=== PATIENT | female | born 1990 | race Caucasian/White ===

== ENCOUNTER 2017-06-06 17:11 | Emergency (ER) | payer BC ==
[~2017-06-06] VITALS: Ht 157.5 cm; Wt 89.8 kg
[~2017-06-06 17:11] MED LIST: ONDA4TAB10 PO
[2017-06-06] MEDS ORDERED: IV NORMAL SALINE 1,000ML 1,000 ML IV SCH (17:45)
[2017-06-06] MEDS ORDERED: KETOROLAC 30 MG/ML VIAL. IV ONE (17:45)
[2017-06-06 18:00] LABS: BASO % 1 % (0-3); EOS % 0 % (0-3); HEMATOCRIT 39.9 % (36.0-47.0); LYMPH # 0.9 x10^3/uL (1.0-4.8); LYMPH % 22 % (24-48); MEAN CORPUSCULAR HEMOGLOBIN 29 pg (25-35); MEAN CORPUSCULAR HGB CONC 35 g/dL (31-37); MEAN CORPUSCULAR VOLUME 82 fL (79-100); MONO # 0.6 x10^3/uL (0.0-1.1); MONO % 15 % (0-9); NEUT # 2.5 x10^3uL (1.8-7.7); NEUT % 63 % (31-73); PLATELET COUNT 208 x10^3/uL (140-400); RED BLOOD COUNT 4.88 x10^6/uL (3.50-5.40); RED CELL DISTRIBUTION WIDTH 14.2 % (11.5-14.5)
--- NOTE | 2017-06-06 18:03 | PHYS DOC ---
Past History Past Medical History: IBS, Migraines Past Surgical History: No Surgical History Alcohol Use: Occasionally Drug Use: None Adult General Chief Complaint Chief Complaint: NAUSEA/VOMITING/DIARRHEA HPI HPI Patient is a 27-year-old female brought to the ED by her mom with a complaint of vomiting and diarrhea, not feeling well. Patient began to have vomiting 4 days ago on Thursday. Between Thursday and she thinks she vomited 18 times. She then developed diarrhea and had diarrhea several times, the last time was last evening. She continues to just feel not well. She has a cough that is productive and sometimes has some streaks of blood. She had abdominal discomfort but it's not as bad as it was. She has been feverish. Patient was seen in her doctor's office yesterday and was given a shot of antibiotic, not sure what it was. It sounds like they thought she might have had a UTI. Patient denies possibility of . She uses NuvaRing. Patient has a history of asthma, she does feel a little wheezy in the upper lungs. Review of Systems Review of Systems Constitutional: She has felt feverish and had chills HENT: Positive nasal congestion Respiratory: Positive cough, productive at times GI: As in history of present illness : Denies dysuria or hematuria [] Musculoskeletal: She has had generalized musculoskeletal aches Integument: Denies rash or skin lesions [] Neurologic: Denies headache, focal weakness or sensory changes [] Current Medications Current Medications Current Medications Medications (Trade) Dose Ordered Sig/Art Start Time Stop Time Status Last Admin Dose Admin Ketorolac Tromethamine (Toradol) 30 mg 1X ONCE 06/06/17 17:45 06/06/17 17:46 DC 06/06/17 17:51 30 MG Sodium Chloride 1,000 ml @ 1,000 mls/hr Q1H 06/06/17 17:45 06/06/17 18:44 06/06/17 17:47 1,000 MLS/HR Allergies Allergies Allergies Coded Allergies Type Severity Reaction Last Updated Verified No Known Drug Allergies 10/28/15 No Physical Exam Physical Exam Constitutional: Obese female, alert, mentating normally, warm and dry. Pulse ox on room air 97-98%. Heart rate at rest on the cart is in the 130s. HENT: Normocephalic, atraumatic, bilateral external ears normal, nose normal. [ ] Eyes: conjunctiva normal, no discharge. [] Neck: Normal range of motion, no stridor. [] Cardiovascular:Heart rate regular rhythm, no murmur , tachycardia Lungs & Thorax: Bilateral breath sounds clear to auscultation with good air movement throughout and no wheezes heard Abdomen: Bowel sounds normal, soft, nondistended, no tenderness, no masses, no pulsatile masses. [] Skin: Warm, dry, no erythema, no rash. [] Extremities: No tenderness, no cyanosis, no clubbing, ROM intact, no edema. [] Neurologic: Alert and oriented X 3, normal motor function, no focal deficits noted. [] EKG EKG [] Radiology/Procedures Radiology/Procedures [] Course & Med Decision Making Course & Med Decision Making Pertinent Labs and Imaging studies reviewed. (See chart for details) 27-year-old female in good general health presents with 4 days of what sounds like probably a viral gastroenteritis, started with many episodes of vomiting and then had several episodes of diarrhea. It sounds like that has passed. She now has cough, general fatigue. She is tachycardic, I suspect she is dehydrated. I advised the patient we will check some labs and give her some IV fluids, she is agreeable to that. Patient's heart rate improved after 1 L, we will give her a second liter. Labs consistent with viral syndrome. She has Zofran at home. She is stable for discharge. See instructions for plan. [] Dragon Disclaimer Dragon Disclaimer This electronic medical record was generated, in whole or in part, using a voice recognition dictation system. Departure Departure: Impression: Primary Impression: Nausea and vomiting Additional Impression: Dehydration Disposition: 01 HOME, SELF-CARE Condition: IMPROVED Referrals: RADHA SAUCEDO (PCP) Patient Instructions: Nausea and Vomiting, [id number] Additional Instructions: Small amounts of clear liquids frequently until your stomach settles. Recheck with your doctor if not better in 2-3 days. Return sooner if worse. Problem Qualifiers BENJIE SCHNEIDER MD Jun 06, 2017 18:03
[2017-06-06 18:08] LABS: ALBUMIN 2.7 g/dL (3.4-5.0); ALBUMIN/GLOBULIN RATIO 0.8 (1.0-1.7); CALCIUM 8.1 mg/dL (8.5-10.1); GFR 66.5; POTASSIUM 3.1 mmol/L (3.5-5.1); TOTAL BILIRUBIN 0.1 mg/dL (0.2-1.0); TOTAL PROTEIN 6.2 g/dL (6.4-8.2)
[2017-06-06] MEDS ORDERED: IV NORMAL SALINE 1,000ML 1,000 ML IV ONE (18:45)
[2017-06-06 18:49] VITALS: BP 136/72
[2017-06-06] MEDS ORDERED: ONDANSETRON PF 4 MG/2 ML VIAL. IV ONE (19:15)
== END 2017-06-06 19:55 | disposition home or self-care (01) ==
LOC: ER 17:11
DX: E86.0 Dehydration (principal); R11.2 Nausea with vomiting, unspecified; K58.0 Irritable bowel syndrome with diarrhea; J45.909 Unspecified asthma, uncomplicated; G43.909 Migraine, unspecified, not intractable, without status migrainosus
CPT/HCPCS: 36415; 80053; 85025; 96361; 96374; 96375; 99284; J1885; J2405; J7030

== ENCOUNTER 2017-12-09 11:22 | Emergency (ER) | payer BC ==
[~2017-12-09] VITALS: Ht 154.9 cm; Wt 88.5 kg
[2017-12-09] MEDS ORDERED: IV NORMAL SALINE 1,000ML 1,000 ML IV ONE (11:45)
[2017-12-09] MEDS ORDERED: IOHEXOL 300 MG/ML 75 ML VIAL. IV ONE (12:15)
[2017-12-09 12:17] LABS: MONONUCLEOSIS PATIENT NEGATIVE (NEGATIVE)
[2017-12-09 12:18] LABS: BASO % 0 % (0-3); EOS # 0.1 x10^3/uL (0.0-0.7); EOS % 1 % (0-3); HEMATOCRIT 40.8 % (36.0-47.0); HEMOGLOBIN 13.8 g/dL (12.0-15.5); LYMPH % 24 % (24-48); MEAN CORPUSCULAR HEMOGLOBIN 28 pg (25-35); MEAN CORPUSCULAR HGB CONC 34 g/dL (31-37); MEAN CORPUSCULAR VOLUME 82 fL (79-100); MONO # 0.7 x10^3/uL (0.0-1.1); MONO % 8 % (0-9); NEUT # 5.6 x10^3uL (1.8-7.7); NEUT % 66 % (31-73); PLATELET COUNT 191 x10^3/uL (140-400); RED BLOOD COUNT 4.96 x10^6/uL (3.50-5.40); RED CELL DISTRIBUTION WIDTH 14.5 % (11.5-14.5); WHITE BLOOD COUNT 8.5 x10^3/uL (4.0-11.0)
[2017-12-09 12:27] LABS: ALBUMIN 2.9 g/dL (3.4-5.0); ALBUMIN/GLOBULIN RATIO 0.7 (1.0-1.7); CALCIUM 8.5 mg/dL (8.5-10.1); CREATININE 0.9 mg/dL (0.6-1.0); GFR 75.1; POTASSIUM 3.9 mmol/L (3.5-5.1); TOTAL BILIRUBIN 0.3 mg/dL (0.2-1.0); TOTAL PROTEIN 7.3 g/dL (6.4-8.2)
[2017-12-09] MEDS ORDERED: methylPREDNISolone SOD SUCC PF 125 MG/2 ML VIAL. IV ONE (12:30)
[2017-12-09] MEDS ORDERED: KETOROLAC 30 MG/ML VIAL. IV ONE (12:30)
[2017-12-09] MEDS ORDERED: CLINDAMYCIN 900MG PREMIX 50 ML IV ONE (12:30)
[2017-12-09 13:00] VITALS: BP 123/80
--- NOTE | 2017-12-09 13:01 | PHYS DOC ---
Past History Past Medical History: Asthma, IBS, Migraines Past Surgical History: No Surgical History Alcohol Use: Rarely Drug Use: None Adult General Chief Complaint Chief Complaint: SORE THROAT HPI HPI 27-year-old female patient states she has had sore throat for the last 8 days and currently taking amoxicillin for several days without improvement of her condition. Patient complaining of intermittent episodes of fever up to 100.4 and nausea and headache problems swallowing for the same time. Patient states she had multiple episodes of sore throat several years ago and 2 episodes of strep infection for the last few months was not referred to ENT. Patient states her pain getting worse today and rated her pain 7/10. Review of Systems Review of Systems Constitutional: Reports fever Eyes: Denies change in visual acuity, redness, or eye pain [] HENT: Reports sore throat and earache Respiratory: Reports mild cough, denies shortness of breath Cardiovascular: No additional information not addressed in HPI [] GI: Denies abdominal pain, vomiting, bloody stools or diarrhea, reports nausea [ ] : Denies dysuria or hematuria [] Musculoskeletal: Denies back pain or joint pain [] Integument: Denies rash or skin lesions [] Neurologic: Denies headache, focal weakness or sensory changes [] Endocrine: Denies polyuria or polydipsia [] All other systems were reviewed and found to be within normal limits, except as documented in this note. Current Medications Current Medications Current Medications Medications (Trade) Dose Ordered Sig/Art Start Time Stop Time Status Last Admin Dose Admin Clindamycin Phosphate 50 ml @ 100 mls/hr 1X ONCE 12/09/17 12:30 12/09/17 12:59 12/09/17 12:11 100 MLS/HR Iohexol (Omnipaque 300 Mg/ml) 75 ml 1X ONCE 12/09/17 12:15 12/09/17 12:16 DC Ketorolac Tromethamine (Toradol) 30 mg 1X ONCE 12/09/17 12:30 12/09/17 12:31 DC 12/09/17 12:10 30 MG Methylprednisolone Sodium Succinate (SOLU-Medrol 125MG VIAL) 125 mg 1X ONCE 12/09/17 12:30 12/09/17 12:31 DC 12/09/17 12:10 125 MG Sodium Chloride 1,000 ml @ 1,000 mls/hr 1X ONCE 12/09/17 11:45 12/09/17 12:44 12/09/17 12:10 1,000 MLS/HR Allergies Allergies Allergies Coded Allergies Type Severity Reaction Last Updated Verified No Known Drug Allergies 10/28/15 No Physical Exam Physical Exam Constitutional: Well developed, well nourished, mild, non-toxic appearance. [] HENT: Normocephalic, atraumatic, bilateral external ears normal, oropharynx moist, bilateral tonsillar edema and erythema with exudates, nose normal. [] Eyes: PERRLA, EOMI, conjunctiva normal, no discharge. [] Neck: Normal range of motion, no tenderness, supple, no stridor. [] Cardiovascular: Tachycardia, no murmur [] Lungs & Thorax: Bilateral breath sounds clear to auscultation [] Abdomen: Bowel sounds normal, soft, no tenderness, no masses, no pulsatile masses. [] Skin: Warm, dry, no erythema, no rash. [] Back: No tenderness, no CVA tenderness. [] Extremities: No tenderness, no cyanosis, no clubbing, ROM intact, no edema. [] Neurologic: Alert and oriented X 3, normal motor function, normal sensory function, no focal deficits noted. [] Psychologic: Affect normal, judgement normal, mood normal. [] Current Patient Data Vital Signs Vital Signs Date Time Temp Pulse Resp B/P (MAP) Pulse Ox O2 Delivery O2 Flow Rate FiO2 12/09/17 11:22 98.7 119 20 95 Room Air Lab Results Laboratory Tests Test 12/09/17 11:45 12/09/17 12:00 Group A Streptococcus Rapid Negative (NEGATIVE) White Blood Count 8.5 x10^3/uL (4.0-11.0) Red Blood Count 4.96 x10^6/uL (3.50-5.40) Hemoglobin 13.8 g/dL (12.0-15.5) Hematocrit 40.8 % (36.0-47.0) Mean Corpuscular Volume 82 fL (79-100) Mean Corpuscular Hemoglobin 28 pg (25-35) Mean Corpuscular Hemoglobin Concent 34 g/dL (31-37) Red Cell Distribution Width 14.5 % (11.5-14.5) Platelet Count 191 x10^3/uL (140-400) Neutrophils (%) (Auto) 66 % (31-73) Lymphocytes (%) (Auto) 24 % (24-48) Monocytes (%) (Auto) 8 % (0-9) Eosinophils (%) (Auto) 1 % (0-3) Basophils (%) (Auto) 0 % (0-3) Neutrophils # (Auto) 5.6 x10^3uL (1.8-7.7) Lymphocytes # (Auto) 2.0 x10^3/uL (1.0-4.8) Monocytes # (Auto) 0.7 x10^3/uL (0.0-1.1) Eosinophils # (Auto) 0.1 x10^3/uL (0.0-0.7) Basophils # (Auto) 0.0 x10^3/uL (0.0-0.2) Maternal Serum HCG Beta Subunit < 1 mIU/mL (0-6) Sodium Level 139 mmol/L (136-145) Potassium Level 3.9 mmol/L (3.5-5.1) Chloride Level 104 mmol/L (98-107) Carbon Dioxide Level 25 mmol/L (21-32) Anion Gap 10 (6-14) Blood Urea Nitrogen 11 mg/dL (7-20) Creatinine 0.9 mg/dL (0.6-1.0) Estimated GFR (Cockcroft-Gault) 75.1 BUN/Creatinine Ratio 12 (6-20) Glucose Level 91 mg/dL (70-99) Lactic Acid Level 1.2 mmol/L (0.4-2.0) Calcium Level 8.5 mg/dL (8.5-10.1) Total Bilirubin 0.3 mg/dL (0.2-1.0) Aspartate Amino Transferase (AST) 46 U/L (15-37) H Alanine Aminotransferase (ALT) 43 U/L (14-59) Alkaline Phosphatase 170 U/L (46-116) H Total Protein 7.3 g/dL (6.4-8.2) Albumin 2.9 g/dL (3.4-5.0) L Albumin/Globulin Ratio 0.7 (1.0-1.7) L Heterophil Agglutinins Negative (NEGATIVE) EKG EKG [] Radiology/Procedures Radiology/Procedures [][address] [address] IMAGING REPORT Signed PATIENT: ROX ENCARNACION V ACCOUNT: [id number] : 1990 LOCATION: ER AGE: 27 SEX: F EXAM STATUS: REG ER ORD. PHYSICIAN: MIKEL AIKEN MD REASON: sore throat for 8 days PROCEDURE: CT SOFT TISSUE NECK W/CONTRAST EXAM: Neck CT with intravenous contrast. HISTORY: Sore throat. TECHNIQUE: Computed tomographic images of the neck were obtained following the administration of 75 cc Omnipaque 300 intravenous contrast. *One or more of the following individualized dose reduction techniques were utilized for this examination: 1. Automated exposure control. 2. Adjustment of the mA and/or kV according to patient size. 3. Use of iterative reconstruction technique. COMPARISON: None. FINDINGS: There is symmetric prominent bilateral tonsillar soft tissue. No clear loculated fluid collection to suggest an abscess is seen. The airway is patent. The parotid glands are unremarkable. There is a tiny focus of gas adjacent to the right submandibular gland, likely within a vein and due to recent peripheral catheterization. The submandibular glands are otherwise unremarkable. The thyroid gland is unremarkable. There are symmetric prominent submandibular lymph nodes. The lung apices are unremarkable. The superior mediastinum is unremarkable. The visualized portions the brain are unremarkable. The paranasal sinuses are clear. The orbits and mastoid air cells are unremarkable. There is no suspicious osseous lesion. IMPRESSION: 1. Prominent bilateral tonsillar soft tissue. This can be seen with tonsillitis. No abscess is seen. 2. Prominent submandibular lymph nodes, likely physiologic or reactive in etiology. Electronically signed by: Porsha Monroe MD (12/09/2017 1:39 PM) [facility] Course & Med Decision Making Course & Med Decision Making Pertinent Labs and Imaging studies reviewed. (See chart for details) Evaluation of patient in ER showed 27-year-old female patient with complaining of sore throat for 8 days without improvement with Augmentin. Patient had intermittent episodes of fever and increasing of pain today. Patient had tonsillar erythema and edema and exudate with tachycardia without fever. Labs including mono and strep test and lactic acid was unremarkable and CT of soft tissue of neck did not show sign of abscess. Patient treated with IV fluid, Toradol, Solu-Medrol, clindamycin and Mcbee and felt better. Patient instructed to follow up with on-call ENT doctor and continue Augmentin besides the new medication prescribed by me. Twan Disclaimer Twan Disclaimer This electronic medical record was generated, in whole or in part, using a voice recognition dictation system. Departure Departure: Impression: Primary Impression: Acute pharyngitis Additional Impression: Tonsillar exudate Disposition: HOME, SELF-CARE (At 1355) Condition: IMPROVED Referrals: ESTRADA HERNANDEZ (PCP) Patient Instructions: Viral and Bacterial Pharyngitis Additional Instructions: Drink plenty of liquids Follow-up with your primary care physician in 3-5 days Return to ER if not getting better Up with on-call ENT doctor Dr. Lawrence Marques in 2 or 3 days with the provided address and phone number Scripts Methylprednisolone (MEDROL) 4 Mg Tab.ds.pk 1 PKG PO UD, #1 PKG Prov: MIKEL AIKEN MD 12/09/17 Hydrocodone Bit/Acetaminophen ([place] 5-325 TABLET) 1 Each Tablet 1 TAB PO PRN Q6HRS PRN for PAIN, #14 TAB 0 Refills Prov: MIKEL AIKEN MD 12/09/17 Clindamycin Hcl (CLINDAMYCIN HCL) 300 Mg Capsule 1 CAP PO TID, #21 CAP Prov: MIKEL AIKEN MD 12/09/17 Problem Qualifiers MIKEL AIKEN MD Dec 09, 2017 13:01
--- NOTE | 2017-12-09 13:41 | RAD ---
EXAM: Neck CT with intravenous contrast. HISTORY: Sore throat. TECHNIQUE: Computed tomographic images of the neck were obtained following the administration of 75 cc Omnipaque 300 intravenous contrast. *One or more of the following individualized dose reduction techniques were utilized for this examination: 1. Automated exposure control. 2. Adjustment of the mA and/or kV according to patient size. 3. Use of iterative reconstruction technique. COMPARISON: None. FINDINGS: There is symmetric prominent bilateral tonsillar soft tissue. No clear loculated fluid collection to suggest an abscess is seen. The airway is patent. The parotid glands are unremarkable. There is a tiny focus of gas adjacent to the right submandibular gland, likely within a vein and due to recent peripheral catheterization. The submandibular glands are otherwise unremarkable. The thyroid gland is unremarkable. There are symmetric prominent submandibular lymph nodes. The lung apices are unremarkable. The superior mediastinum is unremarkable. The visualized portions the brain are unremarkable. The paranasal sinuses are clear. The orbits and mastoid air cells are unremarkable. There is no suspicious osseous lesion. IMPRESSION: 1. Prominent bilateral tonsillar soft tissue. This can be seen with tonsillitis. No abscess is seen. 2. Prominent submandibular lymph nodes, likely physiologic or reactive in etiology. Electronically signed by: Porsha Monroe MD (12/09/2017 1:39 PM) [facility]
[2017-12-09] MEDS ORDERED: CLIN300C8 PO (13:57)
[2017-12-09] MEDS ORDERED: HYDR-971 PO (13:57)
[2017-12-09] MEDS ORDERED: METH4TAB2 PO (13:57)
[2017-12-09] MEDS ORDERED: HYDROcodone/APAP 5/325MG 1 TAB TABLET PO ONE (14:20)
== END 2017-12-09 13:55 | disposition home or self-care (01) ==
LOC: ER 11:22
DX: J02.9 Acute pharyngitis, unspecified (principal); J35.8 Other chronic diseases of tonsils and adenoids; J45.909 Unspecified asthma, uncomplicated; G43.909 Migraine, unspecified, not intractable, without status migrainosus; K58.9 Irritable bowel syndrome, unspecified
CPT/HCPCS: 36415; 70491; 80053; 83605; 84702; 85025; 86308; 87070; 87880; 96365; 96375; 99285; J1885; J2930; J3490; J7030

== ENCOUNTER 2018-07-29 17:04 | Emergency (ER) | payer BC ==
[~2018-07-29] VITALS: Ht 154.9 cm; Wt 95.3 kg
[~2018-07-29 17:04] MED LIST changes: +CLIN300C8 PO; +HYDR-3165 PO; +METH4TAB2 PO
[2018-07-29 17:12] VITALS: BP 152/96
--- NOTE | 2018-07-29 17:54 | PHYS DOC ---
Past History Past Medical History: Depression, Migraines (EMILE OJEDA DO) Past Surgical History: Tonsillectomy (EMILE OJEDA DO) Alcohol Use: None Drug Use: None (EMILE OJEDA DO) Adult General Chief Complaint Chief Complaint: ANKLE PROBLEM HPI HPI Patient is a 28-year-old female who presents with right ankle pain. Approximately an hour prior to arrival she slipped on snow/ice in a ditch as she was getting out of her car, her body went one way and her foot went the other. Patient has not been able to weight-bear on that side since that happened. Patient is taken no pain medicine. No numbness or tingling. No previous history of ankle or foot injury. Increased pain with movement. Pain is severe.[] (EMILE OJEDA DO) Review of Systems Review of Systems Constitutional: Denies fever or chills [] Eyes: Denies change in visual acuity, redness, or eye pain [] HENT: Denies nasal congestion or sore throat [] Respiratory: Denies cough or shortness of breath [] Cardiovascular: No chest pain or palpitations[] GI: Denies abdominal pain, nausea, vomiting, bloody stools or diarrhea [] : Denies dysuria or hematuria [] Musculoskeletal: Denies back pain, see history of present illness[] Integument: Denies rash or skin lesions [] Neurologic: Denies headache, focal weakness or sensory changes [] Endocrine: Denies polyuria or polydipsia [] All other systems were reviewed and found to be within normal limits, except as documented in this note. (EMILE OJEDA DO) Current Medications Current Medications Current Medications Medications (Trade) Dose Ordered Sig/Art Start Time Stop Time Status Last Admin Dose Admin Ibuprofen (Motrin) 600 mg 1X ONCE 07/29/18 17:45 07/29/18 17:46 UNV (EMILE OJEDA DO) Allergies Allergies Allergies Coded Allergies Type Severity Reaction Last Updated Verified No Known Drug Allergies 10/28/15 No (EMILE OJEDA DO) Physical Exam Physical Exam Constitutional: Well developed, well nourished, no acute distress, non-toxic appearance. [] HENT: Normocephalic, atraumatic, bilateral external ears normal, oropharynx moist, no oral exudates, nose normal. [] Eyes: PERRLA, EOMI, conjunctiva normal, no discharge. [] Neck: Normal range of motion, no tenderness, supple, no stridor. [] Cardiovascular:Heart rate regular rhythm, no murmur [] Lungs & Thorax: Bilateral breath sounds clear to auscultation [] Abdomen: Not examined[] Skin: Warm, dry, no erythema, no rash. [] Back: No tenderness, no CVA tenderness. [] Extremities: Tenderness and swelling over the lateral malleolus as well as the calcaneus. Mild tenderness to palpation in her proximal fibula. He shouldn't is distal neurovascularly intact. Decreased active range of motion in the ankle secondary to pain.[] Neurologic: Alert and oriented X 3, normal motor function, normal sensory function, no focal deficits noted. [] Psychologic: Affect normal, judgement normal, mood normal. [] (EMILE OJEDA DO) Current Patient Data Vital Signs Vital Signs Date Time Temp Pulse Resp B/P (MAP) Pulse Ox O2 Delivery O2 Flow Rate FiO2 07/29/18 17:12 97.5 120 20 99 Room Air [facility] EKG EKG [] [facility] Radiology/Procedures Radiology/Procedures [] [facility] Radiology/Procedures I interpretation x-ray shows a mildly displaced fracture of distal fibula. Ankle mortise appears to be intact. See formal report when available (GRACE ANTHONY MD) Course & Med Decision Making Course & Med Decision Making Pertinent Labs and Imaging studies reviewed. (See chart for details) ED course: Patient arrived, was placed in bed, and tolerated exam well. She was transported to and from x-ray with any complications. At 1800, her care was endorsed to the night emergency physician with imaging pending.[] [facility] Course & Med Decision Making Patient keep ankle elevated, ice, splint, crutches, and take Tylenol and ibuprofen for pain. Patient follow-up primary care and orthopedics. Distal neurovascular intact after application of splint. Return if any concerns. Impression: 1. Ankle Sprain 2. Fibular Fx. - mild displacement - (GRACE ANTHONY MD) Dragon Disclaimer Dragon Disclaimer This electronic medical record was generated, in whole or in part, using a voice recognition dictation system. (EMILE OJEDA DO) Departure Departure: Referrals: PCP,UNKNOWN (PCP) Scripts Hydrocodone/Ibuprofen (HYDROCODONE-IBUPROFEN 7.5-200 ) 1 Each Tablet 1 TAB PO PRN Q6HRS PRN for PAIN, #30 TAB 0 Refills Prov: GRACE ANTHONY MD 07/29/18 Dragon Disclaimer This chart was dictated in whole or in part using Voice Recognition software in a busy, high-work load, and often noisy Emergency Department environment. It may contain unintended and wholly unrecognized errors or omissions. (GRACE ANTHONY MD) Discharge Summary Visit Information Final Diagnosis Problems Medical Problems: (1) Fracture Status: Acute (GRACE ANTHONY MD) Brief Hospital Course Allergies Allergies Coded Allergies Type Severity Reaction Last Updated Verified No Known Drug Allergies 10/28/15 No Vital Signs Vital Signs Date Time Temp Pulse Resp B/P (MAP) Pulse Ox O2 Delivery O2 Flow Rate FiO2 07/29/18 18:38 20 98 Room Air 07/29/18 17:12 97.5 120 Brief Hospital Course Ms. Duncan is a 28 old female who presented with ankle sprain and fibular fx. To follow up with primary and orthro. (GRACE ANTHONY MD) Discharge Information Condition at Discharge: Improved, Stable Disposition/Orders: D/C to Home Dischare Medications Current Medications Ibuprofen (Motrin) 600 mg 1X ONCE PO Last administered on 07/29/18at 18:37; Start 07/29/18 at 18:00; Stop 07/29/18 at 18:01; Status DC Oxycodone/ Acetaminophen (Percocet 5/325) 2 tab 1X ONCE PO Last administered on 07/29/18at 18:38; Start 07/29/18 at 18:45; Stop 07/29/18 at 18:46; Status DC Oxycodone/ Acetaminophen (Percocet 5/325) 1 tab STK-MED ONCE .ROUTE ; Start at 18:35; Stop 07/29/18 at 18:36; Status DC Active Scripts Active Hydrocodone-Ibuprofen 7.5-200 (Hydrocodone/Ibuprofen) 1 Each Tablet 1 Tab PO PRN Q6HRS PRN Medrol (Methylprednisolone) 4 Mg Tab.ds.pk 1 Pkg PO UD [place] 5-325 Tablet (Hydrocodone Bit/Acetaminophen) 1 Each Tablet 1 Tab PO PRN Q6HRS PRN Clindamycin Hcl 300 Mg Capsule 1 Cap PO TID Zofran Odt (Ondansetron) 4 Mg Tab.rapdis 4 Mg PO Q6HRS PRN (GRACE ANTHONY MD) EMILE OJEDA DO Jul 29, 2018 17:53 GRACE ANTHONY MD Jul 31, 2018 10:55
[2018-07-29] MEDS ORDERED: IBUPROFEN 600 MG TABLET. PO ONE (18:00)
[2018-07-29] MEDS ORDERED: HYDR-1179 PO (18:18)
[2018-07-29] MEDS ORDERED: oxyCODONE/APAP 5/325 1 TAB TABLET ONE (18:35)
[2018-07-29] MEDS ORDERED: oxyCODONE/APAP 5/325 1 TAB TABLET PO ONE (18:45)
--- NOTE | 2018-07-29 22:55 | RAD ---
Right tibia and fibula, right foot and ankle radiograph 07/29/2018 5:49 PM INDICATION: Fall today with ankle fracture COMPARISON: None available. TECHNIQUE: 3 views the right tibia and fibula, 3 views of the right foot and 3 views the right ankle are provided. FINDINGS: Proximal tibia and fibula are intact. There is an obliquely oriented fracture involving the distal one third of the fibula with intra-articular extension to the ankle mortise. There is no significant disruption of ankle mortise. Lateral soft tissue swelling is present. Tibial plafond and talar dome are intact. Bone mineralization is within normal limits. Joint spaces are maintained. Foot is intact. There is no soft tissue gas or osseous erosion. IMPRESSION: Mildly displaced obliquely oriented distal fibular fracture with extension of the ankle mortise. No significant disruption of the ankle mortise. Stress views may be of benefit. Electronically signed by: Luan Lovett MD (07/29/2018 10:52 PM) [facility]
== END 2018-07-29 19:00 | disposition home or self-care (01) ==
LOC: ER 17:04
DX: S82.831A Other fracture of upper and lower end of right fibula, initial encounter for closed fracture (principal); F32.9 Major depressive disorder, single episode, unspecified; G43.909 Migraine, unspecified, not intractable, without status migrainosus; W00.0XXA Fall on same level due to ice and snow, initial encounter; Y93.89 Activity, other specified; Y92.89 Other specified places as the place of occurrence of the external cause; Y99.8 Other external cause status
CPT/HCPCS: 29515; 73590; 73610; 73630; 99283